=== PATIENT | male | born 1985 | race Caucasian/White ===

== ENCOUNTER 2019-03-23 11:18 | Emergency (ER) | payer SELFPAY | END 2019-03-23 13:24 | disposition home or self-care (01) | LOC: ERS 11:18 | DX: F13.230 Sedative, hypnotic or anxiolytic dependence with withdrawal, uncomplicated (principal); F41.9 Anxiety disorder, unspecified; R25.1 Tremor, unspecified; F32.9 Major depressive disorder, single episode, unspecified; F43.10 Post-traumatic stress disorder, unspecified; F17.210 Nicotine dependence, cigarettes, uncomplicated; Z79.899 Other long term (current) drug therapy | CPT/HCPCS: 99283 ==

== ENCOUNTER 2022-06-03 13:58 | Emergency (ER) | payer SELFPAY ==
[2022-06-03] MEDS ORDERED: Morphine 4 MG/ML VIAL ONE (15:00)
== END 2022-06-03 17:37 | disposition home or self-care (01) ==
LOC: ERS 13:58
DX: K81.0 Acute cholecystitis (principal); K21.9 Gastro-esophageal reflux disease without esophagitis; F17.210 Nicotine dependence, cigarettes, uncomplicated
CPT/HCPCS: 76705; 96374; J2270

== ENCOUNTER 2024-05-15 07:32 | Emergency (ER) | payer SELFPAY ==
[2024-05-15 08:15] LABS: #Basophils 0.08 10x3/uL (0.0-0.2); %Basophils 0.8 % (0.0-1.0); %Eosinophils 2.5 % (0.0-10.0); %Lymphocytes 22.9 % (21.0-51.0); %Monocytes 7.7 % (0.0-10.0); %Neutrophils 65.6 % (42.0-75.0); Hematocrit 44.3 % (42.0-52.0); Hemoglobin 15.5 g/dL (14.0-18.0); Mean Corpuscular Hemoglobin 32.6 pg (27.0-31.0); Mean Corpuscular Volume 93.3 fL (78.0-98.0); Platelet Count 243 10x3/uL (130-400); Red Blood Cell (RBC) Count 4.75 mill/uL (4.70-6.10)
[2024-05-15 08:37] LABS: ALT (SGPT) 23 U/L (8-55); AST (SGOT) 26 U/L (5-34); Albumin 3.5 g/dL (3.5-5.0); Alkaline Phosphatase 61 U/L (40-110); Anion Gap 14 mmol/L (10-20); BUN (Urea Nitrogen) 11 mg/dL (8.9-20.6); Bilirubin, Total 0.2 mg/dL (0.2-1.2); Calc. Creatinine Clearance 0 mL/min (70-130); Calcium 8.2 mg/dL (7.8-10.44); Carbon Dioxide 18 mmol/L (22-29); Chloride 110 mmol/L (98-107); Estimated GFR 118; Globulin 3.2 g/dL (2.4-3.5); Glucose 123 mg/dL (70-105); Potassium 3.9 mmol/L (3.5-5.1); Protein, Total 6.7 g/dL (6.0-8.3); Sodium 138 mmol/L (136-145)
[2024-05-15 08:53] LABS: Bacteria/HPF None Seen HPF (None Seen); Bilirubin Negative (Negative); Blood, Urine Negative (Negative); CAUTI Indications for Culture Dysuria,urgency,freq; Clarity Clear (Clear); Glucose, Urine (Dipstick) Normal (Negative); Ketone, Urine Negative (Negative); Leukocyte Negative Leu/uL (Negative); Nitrite Negative (Negative); Protein, Urine (Dipstick) Negative (Neg-Trace); RBC/HPF 0-3 HPF (0-3); Specific Gravity, Urine 1.008 (1.002-1.036); Squamous Epithelial 0-3 HPF (0-3); Urobilinogen Normal mg/dL (Less than 2); WBC/HPF 0-3 HPF (0-3); pH, Urine 5.5 (5.0-9.0)
[2024-05-15 08:55] LABS: Urine Culture Reflex No No
== END 2024-05-15 18:06 | disposition home or self-care (01) ==
LOC: ERS 07:32
DX: K80.50 Calculus of bile duct without cholangitis or cholecystitis without obstruction (principal); F17.210 Nicotine dependence, cigarettes, uncomplicated
CPT/HCPCS: 36415; 76705; 80053; 81001; 85025